=== PATIENT | male | born 1945 | race Caucasian/White ===

== ENCOUNTER 2017-09-27 14:09 | Emergency (ER) | payer MEDICARE ==
[2017-09-27 14:36] LABS: ADD MAN DIFF? NO
[2017-09-27 14:44] LABS: BASO % 0 % (0-3); EOS # 0.1 x10^3/uL (0.0-0.7); EOS % 1 % (0-3); HEMATOCRIT 37.8 % (39.0-53.0); HEMOGLOBIN 12.9 g/dL (13.0-17.5); LYMPH % 7 % (24-48); MEAN CORPUSCULAR HEMOGLOBIN 29 pg (25-35); MEAN CORPUSCULAR HGB CONC 34 g/dL (31-37); MEAN CORPUSCULAR VOLUME 86 fL (79-100); MONO # 1.2 x10^3/uL (0.0-1.1); MONO % 9 % (0-9); NEUT # 11.2 x10^3uL (1.8-7.7); NEUT % 82 % (31-73); PLATELET COUNT 422 x10^3/uL (140-400); RED BLOOD COUNT 4.39 x10^6/uL (4.30-5.70); WHITE BLOOD COUNT 13.6 x10^3/uL (4.0-11.0)
[2017-09-27 14:53] LABS: INR 1.1 (0.8-1.1); PROTHROMBIN TIME PATIENT 13.9 SEC (11.7-14.0)
[2017-09-27 15:10] LABS: TROPONINI < 0.017 ng/mL (0.000-0.055)
[2017-09-27 15:16] LABS: NT-PRO BNP 1647 pg/mL (0-124)
[2017-09-27 15:16] LABS: ANION GAP 8 (6-14); BLOOD UREA NITROGEN 27 mg/dL (8-26); BUN/CREATININE RATIO 25 (6-20); CARBON DIOXIDE 29 mmol/L (21-32); CHLORIDE 96 mmol/L (98-107); CKMB INDEX 1.3 % (0-4); CKMB MASS 1.8 ng/mL (0.0-3.6); CREATINE KINASE 135 U/L (39-308); CREATININE 1.1 mg/dL (0.7-1.3); GFR 65.6; GLUCOSE 160 mg/dL (70-99); POTASSIUM 3.5 mmol/L (3.5-5.1); SODIUM 133 mmol/L (136-145)
[2017-09-27 15:19] LABS: ALBUMIN 2.4 g/dL (3.4-5.0); ALBUMIN/GLOBULIN RATIO 0.6 (1.0-1.7); ALK PHOS 58 U/L (46-116); ALT (SGPT) 24 U/L (16-63); AST (SGOT) 22 U/L (15-37); CREATINE KINASE 130 U/L (39-308); MAGNESIUM 2.1 mg/dL (1.8-2.4); TOTAL BILIRUBIN 0.5 mg/dL (0.2-1.0); TOTAL PROTEIN 6.4 g/dL (6.4-8.2)
[2017-09-27 15:33] LABS: D-DIMER 5.56 ug/mlFEU (0.00-0.50)
[2017-09-27] MEDS: IV NORMAL SALINE 500ML BAG 500 ML IV (15:37)
[2017-09-27] MEDS ORDERED: CONTRAST GIVEN. MC (16:00)
[2017-09-27] MEDS: IOHEXOL 300 MG/ML 100ML VIAL. IV (16:16)
== END 2017-09-27 17:35 | disposition short-term general hospital (02) ==
LOC: ER 14:09
DX: R06.03 Acute respiratory distress (principal); R00.0 Tachycardia, unspecified; R79.1 Abnormal coagulation profile; J90 Pleural effusion, not elsewhere classified; Z91.041 Radiographic dye allergy status
CPT/HCPCS: 36415; 71045; 71275; 80053; 82550; 82553; 83605; 83735; 83880; 84484; 85025; 85379; 85610; 87040; 93005; 99285-25; J7040; Q9967